=== PATIENT | male | born 1995 | race Caucasian/White ===

== ENCOUNTER 2019-01-23 01:57 | Emergency (ER) | payer OTHER ==
[~2019-01-23] VITALS: Ht 180.3 cm; Wt 63.6 kg
[2019-01-23 02:02] VITALS: BP 135/78; Ht 180.3 cm; Wt 63.6 kg
[2019-01-23 02:20] LABS: COLOR YELLOW (YELLOW)
[2019-01-23 02:21] LABS: APPEARANCE CLEAR (CLEAR); BILIRUBIN NEGATIVE (NEGATIVE); GLUCOSE NEGATIVE (NEGATIVE); KETONE NEGATIVE (NEGATIVE); NITRITE NEGATIVE (NEGATIVE); PROTEIN NEGATIVE (NEGATIVE); UROBILINOGEN NORMAL (NORMAL)
== END 2019-01-23 02:54 | disposition left against medical advice (07) ==
LOC: D.ER 01:57
PROVIDERS: Family Medicine
DX: M25.572 Pain in left ankle and joints of left foot (principal); V49.3XXA Car occupant (driver) (passenger) injured in unspecified nontraffic accident, initial encounter; Y93.89 Activity, other specified; Y92.410 Unspecified street and highway as the place of occurrence of the external cause